=== PATIENT | male | born 1995 | race Caucasian/White ===

== ENCOUNTER 2017-01-15 23:05 | Emergency (ER) | payer BC ==
[2017-01-15] MEDS ORDERED: METHYLPREDNISOLONE SOD SUCC/PF 125 MG/2 ML VIAL ONE (23:15)
[2017-01-15] MEDS ORDERED: LEVALBUTEROL HCL 1.25 MG/3 ML AMPUL IH ONE ×2 (23:15→23:17)
[2017-01-15] MEDS ORDERED: METHYLPREDNISOLONE SOD SUCC/PF 40 MG/ML VIAL IV ONE (23:16)
--- NOTE | 2017-01-15 23:19 | ERNOTE ---
Date of Service: 01/15/17 Time Seen by Provider: 01/15/17 23:18 Stated Complaint: ASTHMA ATTACK Presenting Symptoms:: cough, runny nose, other - SOB Source: patient Exam Limitations: no limitations Immunizations: IMMUNIZATION HX Immunizations Up to Date Yes History of Influenza Vaccine No Hx Pneumococcal Vaccination No Allergies/Adverse Reactions: Allergies amoxicillin Allergy (Intermediate, Verified 01/15/17 23:14) Hives Home Medications: HOME MEDICATIONS PARoxetine HCL [Paxil] 30 mg PO DAILY 10/01/16 [Last Taken Unknown] Fexofenadine HCl [Yesica Allergy] 180 mg PO DAILY #15 tab 01/16/17 [Last Taken Unknown] Guaifenesin/Pseudoephedrne HCl [Mucinex D ER 1,200-120 mg Tab] 1 tab PO Q12H PRN #24 tab 01/16/17 [Last Taken Unknown] predniSONE [Prednisone] 2 tab PO DAILY #14 tab 01/16/17 [Last Taken Unknown] - History of Present Ilness Narrative: Presents to ER with c/o SOB and wheezing. Pt has a h/o asthma with occasional attacks. Pt is a daily smoker. Severity: severe Frequency/Possible Cause: Reports: occasional episodes Associated Symptoms: Reports: cough, shortness of breath, wheezing, nasal drainage. Denies: facial pain, nasal congestion, sore throat, fever/chills Review of Systems - Review of Systems Constitutional: Present: no symptoms reported EYE: Present: no symptoms reported ENT: Present: See HPI Respiratory: Present: See HPI, shortness of breath, cough, wheezing Cardiology: Present: no symptoms reported Gastrointestinal/Abdominal: Present: no symptoms reported Genitourinary: Present: no symptoms reported Musculoskeletal: Present: no symptoms reported Skin: Present: no symptoms reported Neurological: Present: no symptoms reported Endocrine: Present: no symptoms reported Hematologic/Lymphatic: Present: no symptoms reported Psych: Present: no symptoms reported All Other Systems: All systems neg except as marked - Patient's Past Medical History Patient History - Medical: Anxiety, Depression Patient History - Cardiac/Respiratory: No pertinent hx Patient History - Cancer: No Hx of Cancer Patient History - Surgical Procedures: Appendectomy Patient History - Other: None - Social History Living Situations: alone Abuse History: No History of abuse Psych History: Hx of Anxiety, Hx of Depression Alcohol Use: none Drug Use: none - Immunizations Immunizations Up to Date: Yes Hx Pneumococcal Vaccination: No History of Influenza Vaccine: No Physical Exam - Physical Exam General Appearance: Present: wd/wn, alert, moderate distress - Due to SOB Eye Exam: Normal inspection: bilateral, PERRL: bilateral, EOMI: bilateral Ears, Nose, Throat: Present: normal ENT inspection, hearing grossly normal, normal pharynx Neck: Present: normal inspection, nontender, supple, full range of motion Respiratory: Present: respiratory distress - moderate, accessory muscle use, decreased breath sounds, wheezing - Very faint. Absent: chest tenderness, crackles, rales, rhonchi, stridor Cardiovascular/Chest: Present: no murmur, tachycardia Gastrointestinal/Abdominal: Present: normal bowel sounds, nontender, nondistended, soft, no organomegaly Rectal Exam: Present: nontender Neurological Exam: Present: alert, oriented, normal mood/affect Skin Exam: Present: normal color, diaphoresis ED Progress - Vital Signs Patient's Vital Signs:: I have reviewed the patient's vital signs. Vital Signs: Vital Signs 01/15/17 01/15/17 23:07 23:14 Temperature 37.2 C Pulse Rate 127 H 126 H Respiratory 29 H Rate Blood Pressure 131/70 O2 Sat by Pulse 94 Oximetry - Progress/Reassessment Chief Complaint: Asthma Progress:: Improved - after xopenex neb and solumedrol IV Departure - Departure Clinical Impression: Acute asthma exacerbation Qualifiers: Asthma severity: mild persistent Qualified Code(s): J45.31 - Mild persistent asthma with (acute) exacerbation URI (upper respiratory infection) Qualifiers: URI type: unspecified URI Qualified Code(s): J06.9 - Acute upper respiratory infection, unspecified Disposition: Home self-care Condition: Good Instructions: Asthma, Adult, [id number], Upper Respiratory Infection, Adult, [id number] Prescriptions: Fexofenadine HCl [Yesica Allergy] 180 mg PO DAILY #15 tab Guaifenesin/Pseudoephedrne HCl [Mucinex D ER 1,200-120 mg Tab] 1 tab PO Q12H PRN #24 tab PRN Reason: Congestion predniSONE [Prednisone] 2 tab PO DAILY #14 tab
[2017-01-16 00:38] VITALS: BP 115/54
== END 2017-01-16 00:36 | disposition home or self-care (01) ==
LOC: ER 23:05
DX: J45.31 Mild persistent asthma with (acute) exacerbation (principal); J06.9 Acute upper respiratory infection, unspecified; F17.210 Nicotine dependence, cigarettes, uncomplicated

== ENCOUNTER 2017-05-27 01:56 | Emergency (ER) | payer BC ==
--- NOTE | 2017-05-27 02:38 | ERNOTE ---
GI Bleeding/Rectal Pain ER Presenting Symptoms: rectal bleeding Time Seen by Provider: 05/27/17 02:29 Source: patient Immunizations: IMMUNIZATION HX Immunizations Up to Date Yes History of Influenza Vaccine No Hx Pneumococcal Vaccination No Allergies/Adverse Reactions: Allergies amoxicillin Allergy (Intermediate, Verified 01/15/17 23:14) Hives Home Medications: HOME MEDICATIONS Beclomethasone Dipropionate [Qvar] 8.7 gm IH BID 05/27/17 [Last Taken Unknown] FLUoxetine HCL [Prozac] 40 mg PO DAILY 05/27/17 [Last Taken Unknown] Fexofenadine HCl [Yesica Allergy] 180 mg PO DAILY 05/27/17 [Last Taken Unknown] Montelukast Sodium [Singulair] 10 mg PO DAILY 05/27/17 [Last Taken Unknown] Ranitidine HCl [Acid [employer] Manager] 150 mg PO DAILY 05/27/17 [Last Taken Unknown] Narrative: pt states that today he has noticed blood on the toilet paper when he wiped. He denies any blood in the stool Timing: intermittent Quality/Severity: Present: mild Abdominal Pain: Present: LLQ - intermittent Rectal Bleeding: Present: bright red blood on paper Review of Systems - Review of Systems Constitutional: Absent: recent illness, fever, chills EYE: Present: no symptoms reported ENT: Present: no symptoms reported Respiratory: Present: no symptoms reported Cardiology: Present: no symptoms reported Gastrointestinal/Abdominal: Present: See HPI, constipation Genitourinary: Present: no symptoms reported Musculoskeletal: Present: no symptoms reported Skin: Present: no symptoms reported Neurological: Present: no symptoms reported Endocrine: Present: no symptoms reported Hematologic/Lymphatic: Present: no symptoms reported Psych: Present: no symptoms reported - Patient's Past Medical History Patient History - Medical: Anxiety, Depression, Migraines, Other Patient History - Cardiac/Respiratory: Asthma Patient History - Cancer: No Hx of Cancer Patient History - Surgical Procedures: Appendectomy Patient History - Other: None - Social History Living Situations: significant other Abuse History: No History of abuse Psych History: Hx of Anxiety, Hx of Depression Smoking Status: Current every day smoker Have you smoked in the past 12 months: Yes Do you dip or chew tobacco: Yes Alcohol Use: rarely Drug Use: marijuana - Immunizations Immunizations Up to Date: Yes Hx Pneumococcal Vaccination: No History of Influenza Vaccine: No Physical Exam - Physical Exam General Appearance: Present: wd/wn, alert, no apparent distress Eye Exam: Normal inspection: bilateral, PERRL: bilateral Ears, Nose, Throat: Present: normal ENT inspection Neck: Present: normal inspection, supple Gastrointestinal/Abdominal: Present: normal bowel sounds, nontender, nondistended, soft Back Exam: Present: normal inspection, normal range of motion Extremity Exam: Present: normal inspection, normal range of motion Neurological Exam: Present: alert, oriented, normal mood/affect Skin Exam: Present: normal color, warm/dry ED Progress - Results and Orders Patient's Lab Results:: I have reviewed the patient's lab results. Results and Orders: Laboratory Tests 05/27/17 05/27/17 02:45 02:45 WBC 6.4 Hgb 14.5 Hct 41.4 L Plt Count 232 Sodium 141 Potassium 4.0 Chloride 103 Carbon Dioxide 28.2 Anion Gap 13.8 BUN 15 Creatinine 1.08 Est GFR (Non-Af Amer) 93 BUN/Creatinine Ratio 13.9 Random Glucose 83 Calcium 9.2 Calcium Adj for Albumin 8.6 Total Bilirubin 0.3 AST 16 ALT 22 Alkaline Phosphatase 74 Total Protein 7.9 Albumin 4.3 - Vital Signs Patient's Vital Signs:: I have reviewed the patient's vital signs. Vital Signs: Vital Signs 05/27/17 01:59 Temperature 36.9 C Pulse Rate 90 Respiratory 16 Rate Blood Pressure 137/69 O2 Sat by Pulse 98 Oximetry - X-Ray X-Ray #1 X-Ray: abdomen Interpretation: Interp. by me X-ray Comments: moderate stool throughout the colon. No evidence of obstruction - Progress/Reassessment Chief Complaint: Rectal Bleeding Departure Clinical Impression: Constipation Qualifiers: Constipation type: other constipation type Qualified Code(s): K59.09 - Other constipation Hemorrhoid Qualifiers: Hemorrhoid type: unspecified Qualified Code(s): K64.9 - Unspecified hemorrhoids - Departure Disposition: Home self-care Condition: Good Instructions: Constipation, Adult, [id number] Additional Instructions: Increase your fiber and water intake. See your regular doctor if not improving. May use OTC hemorrhoid creams for discomfort Referrals: Lyn Pendleton ARNP [Primary Care Provider] -
[2017-05-27 02:45] LABS: Hematocrit 41.4 % (42.0-52.0); Hemoglobin 14.5 gm/dL (13.5-18.0); Mean Cell Volume 91.2 fl (78-100); Mean Corpuscular Hemoglobin 31.9 pg (27-31); Mean Platelet Volume 9.3 fl (6.0-9.5); Neutrophil # 3.6 K/mm3 (1.3-6.0); Neutrophil % 55.6 % (42-75.0); Platelet Count 232 K/mm3 (150-450); Red Blood Count 4.54 M/mm3 (4.7-6.0); Red Cell Distribution Width 12.3 % (11.5-14.0); White Blood Count 6.4 K/mm3 (4.0-10.5)
[2017-05-27 03:00] LABS: Albumin * 4.3 gm/dl (3.4-5.0); Anion Gap 13.8 mmol/L (6.8-13.8); BUN/Creatinine Ratio 13.9 (9.0-21.6); Bilirubin, Total 0.3 mg/dL (0.0-1.1); Ca. Corrected For Albumin 8.6 mg/dL (8.4-10.2); Calcium * 9.2 mg/dL (7.9-10.9); Carbon Dioxide 28.2 mmol/L (24-32.6); Total Protein 7.9 gm/dL (6.2-8.2)
[2017-05-27 03:09] VITALS: BP 130/67
[2017-05-27] MEDS ORDERED: MAGNESIUM HYDROXIDE 30 ML UDC PO ONE (03:10)
[2017-05-27] MEDS ORDERED: MAGNESIUM HYDROXIDE 30 ML UDC ONE (03:12)
== END 2017-05-27 03:16 | disposition home or self-care (01) ==
LOC: ER 01:56
DX: K59.09 Other constipation (principal); K64.9 Unspecified hemorrhoids; F32.9 Major depressive disorder, single episode, unspecified; J45.909 Unspecified asthma, uncomplicated; Z72.0 Tobacco use